=== PATIENT | female | born 1935 | race Caucasian/White ===

== ENCOUNTER → 2018-02-25 | Outpatient (CLI) | payer OTHER, MEDICAID ==
[~2018-02-25] MED LIST: ADULT LOW DOSE81 MG PO; AMLODIPINE BESY10 MG PO; BENICAR20 MG PO; BYSTOLIC 5 MG5 M1 PO; CALCIUM 600 +1 EAC1 PO; CYMBALTA60 MG PO; DEMEROL; DEXILANT30 MG PO; DULCOLAX5 MG PO; DUONEB 2.5-0.5 M3 ML INH; EYE DROP TEARS15 ML OP; FISH OIL 1,001000 M2; HYDROCHLOROTH12.5 MG PO; HYDROCODONE-AP1 EACH PO; HYDROXYCHLOROQ200 M1 PO; IRBESARTAN300 MG PO; KEFLEX500 MG PO; LOTENSIN20 MG PO; OMEGA-31000 MG PO; ONDANSETRON HCL4 M2 PO; PENTAZOCINE IJ; PRISTIQ50 MG PO; REQUIP; REQUIP 1 MG TABL1 M1 PO; SINGULAIR 10 MG10 M1 PO; STOOL SOFTENER100 MG PO; SYMBICORT160 MCG/4. INH; TRAMADOL 50 MG50 MG PO; VENTOLIN HFA 1818 GM INH; ZANTAC 150MG T150 MG PO
== END ==
LOC: M.CT 09:21
DX: M94.0 Chondrocostal junction syndrome [Tietze] (principal); I10 Essential (primary) hypertension; K21.9 Gastro-esophageal reflux disease without esophagitis